=== PATIENT | female | born 1985 | race Caucasian/White ===

== ENCOUNTER 2017-09-24 09:07 | Day surgery (SDC) | payer OTHER ==
[~2017-09-24] VITALS: Ht 165.1 cm; Wt 62.6 kg
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
[2017-09-24 11:11] LABS: HEMATOCRIT 35.8 % (36.0-48.0); MCH 30.8 pg (26.0-34.0); MCHC 33.5 g/dL (31.0-37.0); MEAN PLATELET VOLUME 8.7 fL (7.4-10.4); RBC 3.89 10x6/uL (4.00-5.40); RDW 13.6 % (11.5-14.5); WBC 11.9 10x3/uL (4.8-10.8)
[2017-09-24] MEDS ORDERED: PERCOCET 5-3251 TAB PO (12:10)
[2017-09-24] MEDS ORDERED: IBUPROFEN600 MG PO (12:11)
[2017-09-24 12:15] VITALS: BP 90/54; Ht 165.1 cm; Wt 62.6 kg
[2017-09-24] MEDS ORDERED: DURICEF500 MG PO (13:06)
[2017-09-24] MEDS ORDERED: VISTARIL50 MG PO (13:06)
[2017-09-24] MEDS ORDERED: PERCOCET 7.5/321 TAB PO (13:06)
== END 2017-09-24 16:00 | disposition home or self-care (01) ==
LOC: D.OPS 09:07 → D.PAN 13:00 → D.OPS 13:00
PROVIDERS: Anesthesiology
DX: S62.91XA Unspecified fracture of right hand, initial encounter for closed fracture (principal); F17.200 Nicotine dependence, unspecified, uncomplicated; K21.9 Gastro-esophageal reflux disease without esophagitis; V86.95XA Unspecified occupant of 3- or 4- wheeled all-terrain vehicle (ATV) injured in nontraffic accident, initial encounter; Z01.812 Encounter for preprocedural laboratory examination